=== PATIENT | male | born 1935 | race Caucasian/White ===

== ENCOUNTER 2024-10-29 10:34 | Inpatient (IN) | payer OTHER, MEDICARE ==
[~2024-10-29] VITALS: Ht 182.9 cm; Wt 88.0 kg
[2024-10-29 11:12] LABS: BASOPHILS # (AUTO) 0.1 X10'3 (0-0.2); BASOPHILS % (AUTO) 0.9 % (0-1); EOSINOPHILS # (AUTO) 0.2 X10'3 (0-0.9); EOSINOPHILS % (AUTO) 2.1 % (0-6); HEMATOCRIT 38.4 % (42.0-52.0); HEMOGLOBIN 13.2 g/dl (14.0-17.9); LYMPHOCYTES # (AUTO) 1.4 X10'3 (1.1-4.8); LYMPHOCYTES % (AUTO) 17.7 % (21-51); MEAN CORPUSCULAR HEMOGLOBIN 32.2 PG (27.0-31.0); MEAN CORPUSCULAR HGB CONC 34.3 g/dL (33.0-36.5); MEAN CORPUSCULAR VOLUME 93.8 FL (78-98); MEAN PLATELET VOLUME 7.1 FL (7.4-10.4); MONOCYTES # (AUTO) 0.7 X10'3 (0-0.9); MONOCYTES % (AUTO) 8.5 % (2-12); NEUTROPHILS # (AUTO) 5.6 X10'3 (1.8-7.7); NEUTROPHILS % (AUTO) 70.8 % (42-75); PLATELET COUNT 228 X10'3 (140-440); RED BLOOD COUNT 4.09 X10'6 (4.70-6.10); RED CELL DISTRIBUTION WIDTH 14.9 % (11.5-14.5); WHITE BLOOD COUNT 7.9 X10'3 (4.5-11.0)
--- NOTE | 2024-10-29 11:17 | RADIOLOGY REPORT ---
EXAM: XR Chest, 1 View CLINICAL INDICATION: CP TECHNIQUE: Frontal view of the chest. COMPARISON: None FINDINGS: LUNGS AND PLEURAL SPACES: Unremarkable. No consolidation. No pneumothorax. HEART: Unremarkable. No cardiomegaly. MEDIASTINUM: Unremarkable. Normal mediastinal contour. BONES/JOINTS: Unremarkable. No acute fracture. TUBES, LINES AND DEVICES: Left-sided cardiac pacemaker. OTHER FINDINGS: . . IMPRESSION: No acute cardiopulmonary process.
[2024-10-29 11:43] LABS: ALANINE AMINOTRANSFERASE 40 U/L (12-78); ALBUMIN 3.4 G/DL (3.4-5.0); ALBUMIN/GLOBULIN RATIO 1.3 (1.1-1.5); ALKALINE PHOSPHATASE 93 IU/L (46-116); ANION GAP 9 (8-16); ASPARTATE AMINO TRANSFERASE 28 U/L (10-37); BILIRUBIN,TOTAL 0.8 MG/DL (0.1-1.0); BLOOD UREA NITROGEN 29 MG/DL (7-18); BUN/CREATININE RATIO 22.7 (10.0-20.0); CALCIUM 8.9 MG/DL (8.5-10.1); CHLORIDE 108 MMOL/L (99-107); CREATININE 1.28 MG/DL (0.60-1.10); GLUCOSE 106 MG/DL (70-104); POTASSIUM 4.4 MMOL/L (3.5-5.1); SODIUM 144 MMOL/L (135-145); TOTAL PROTEIN 6.1 G/DL (6.4-8.2); eCRCL 43 ML/MIN; eGFR 53 ML/MIN
[2024-10-29 11:49] LABS: PRO BRAIN NATRIURETIC PEPTIDE 445 PG/ML (0-450)
--- NOTE | 2024-10-29 11:50 | RADIOLOGY REPORT ---
CLINICAL HISTORY: dizziness TECHNIQUE: Helical imaging carried out from skull base to vertex without intravenous contrast. This e xam was performed according to our departmental dose optimization program. Up-to-date CT equipment an d radiation dose reduction techniques are utilized as appropriate. CTDIVol: 34.05 mGy DLP: 641.18 mGy-cm WID: COMPARISON: None FINDINGS: Generalized cerebral volume loss with concordant prominence of the subarachnoid spaces and ventricles . Moderate patchy low attenuation in the cerebral white matter consistent with nonspecific white shahbaz er disease. 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 There is no midline shift or mass effect. The thorne white matter interfaces are maintained. The basal cisterns are patent. There is no evidence of acute intracranial hemorrhage or extra-axial fluid jose ection. The mastoid air cells and visualized paranasal sinuses are well-aerated. Prior ocular lens re placement. IMPRESSION: 1. No acute intracranial abnormality. 2. Generalized cerebral volume loss and moderate chronic microvascular ischemic Change. 3. 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
--- NOTE | 2024-10-29 12:27 | Physician Documentation ---
History of Present Illness ~ Chief Complaint: Dizziness Stated Complaint: DIZZY Time Seen by MD: 10:56 OK to notify your PCP?: Yes Source: patient Mode of Arrival: EMS Exam Limitations: no limitations HPI 89-year-old male with chief complaint three episodes of dizziness that occurred when he woke up this morning. He woke up feeling dizzy and the dizziness happened when he was supine in bed and then occurred again when he got out of bed on the way to the bathroom. One episode occurred when he was sitting down on the toilet and he had a fall but fell onto the toilet stating the toliet caught his fall. Did not hit head. No LOC. 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 HEENT: NCAT, EOMI, PERRLA, normal oropharynx, moist oral mucosa. NECK: Supple, trachea midline. CARDIAC: Regular rate and rhythm, no murmurs, rubs, or gallops. Equal distal pulses. No lower extremity edema, cap refill less than 2 seconds. RESPIRATORY: Equal breath sounds, clear to auscultation bilaterally, no respiratory distress. MUSCULOSKELETAL: Normal range of motion, nontender, no swelling. NEUROLOGICAL: Awake, alert, and oriented x 3. CN 2-12 INTACT. NORMAL [id number], MAJOR FLEXOR AND EXTENSOR MUSCLES OF UPPER AND LOWER EXTREMITIES STRENGTH 5/5 SKIN: Warm/dry, no pallor, no rash. PSYCH: Alert and appropriate. Affect congruent with mood. Speech is clear. Good eye contact. Progress Results/Orders Results/Orders Orders - MARY B[facility] Ct Head (10/29/24 11:15) * Orthostatic Vitals* Q12H (10/29/24 11:15) [place] Prov.Neuro Consult (10/29/24 12:13) General Nursing Order (10/29/24 12:13) Page Hospitalist (10/29/24 12:13) Completed Orders - MARY [facility] Ct Head (10/29/24 11:15) Medications Received in ER Medications (Trade) Dose Ordered Sig/Jesika Route PRN Reason Start Time Stop Time Status Last Admin Dose Admin Sodium Chloride 1,000 ml @ 80 mls/hr [id number] IV 10/29/24 12:30 10/29/24 16:00 80 MLS/HR Vital Signs 10/29/24 10/29/24 10/29/24 10/29/24 10:36 10:48 12:10 12:32 Temp 98.0 Pulse 64 60 63 Resp 16 16 18 B/P (MAP) 148/75 133/69 (90) 145/73 Pulse Ox 98 98 O2 Flow Rate 0 10/29/24 12:33 Pulse 62 60 63 B/P (MAP) 139/72 144/74 145/73 Laboratory Tests Test 10/29/24 11:05 White Blood Count 7.9 Red Blood Count 4.09 L Hemoglobin 13.2 L Hematocrit 38.4 L Mean Corpuscular Volume 93.8 Mean Corpuscular Hemoglobin 32.2 H Mean Corpuscular Hemoglobin Concent 34.3 Red Cell Distribution Width 14.9 H Platelet Count 228 Mean Platelet Volume 7.1 L Neutrophils (%) (Auto) 70.8 Lymphocytes (%) (Auto) 17.7 L Monocytes (%) (Auto) 8.5 Eosinophils (%) (Auto) 2.1 Basophils (%) (Auto) 0.9 Neutrophils # (Auto) 5.6 Lymphocytes # (Auto) 1.4 Monocytes # (Auto) 0.7 Eosinophils # (Auto) 0.2 Basophils # (Auto) 0.1 CBC Comment Sodium Level 144 Potassium Level 4.4 Chloride Level 108 H Carbon Dioxide Level 27.0 Anion Gap 9 Blood Urea Nitrogen 29 H Creatinine 1.28 H Estimated GFR/1.73 m2 53 BUN/Creatinine Ratio 22.7 H Glucose Level 106 H Osmolality 300 Calcium Level 8.9 Total Bilirubin 0.8 Aspartate Amino Transf (AST/SGOT) 28 Alanine Aminotransferase (ALT/SGPT) 40 Alkaline Phosphatase 93 Troponin I High Sensitivity 21 Pro-B-Type Natriuretic Peptide 445 Total Protein 6.1 L Albumin 3.4 Globulin 2.7 Albumin/Globulin Ratio 1.3 Chemistry Comments Ethyl Alcohol Level < 10 Medical Decision Making Differential Dx:Considerations: Include: anemia, CVA, dehydration, dysrhythmia, electrolyte imbalance, encephalopathy, Guillain-[place], hypoglycemia, hypotension, hypovolemia, labyrinthitis, Meniere's disease, myasathenia gravis, myocardial infarction, pulmonary embolus, renal failure, respiratory failure, TIA, VBI, vertigo central, vertigo peripheral, vestibular neuronitis, other Additional Information CONSIDERING AGE AND FINDINGS ON CT SCAN OF CHRONIC LACUNAR INFARCT AND UNCLEAR STROKE HISTORY SON REPORTS HISTORY OF "TIA" ONLY PATIENT NEEDS FURTHER WORKUP Departure Time of Disposition: 12:29 Admitted to Inpatient Unit: to hospitalist Impression: Primary Impression: Dizziness Additional Impressions: Cerebral infarction, chronic Pacemaker Coronary artery disease Qualified Codes: I25.10 - Atherosclerotic heart disease of [place] coronary artery without angina pectoris CHF (congestive heart failure) Qualified Codes: I50.9 - Heart failure, unspecified Condition: Fair Referrals: NO PRIMARY CARE PROVIDER (PCP) Education Educated: Patient Educated regarding: diagnosis, treatment, need for follow up Signature Scribe Signature: x Attestation: MARY Rizzo Oct 29, 2024 12:27
[2024-10-29] MEDS ORDERED: potassium Cl 20 mEq SR tablet PO PRN ×2 (12:30)
[2024-10-29] MEDS ORDERED: magnesium Cl slow-release 64mg tablet PO PRN (12:30)
[2024-10-29] MEDS ORDERED: mag hydrox/Alum hydrox/simeth 30ml oral suspension PO PRN (12:30)
[2024-10-29] MEDS ORDERED: magnesium hydroxide 30ml (MOM) UD suspension PO PRN (12:30)
[2024-10-29] MEDS ORDERED: magnesium sulf-water 4G/100mL 100 ML IV PRN (12:30)
[2024-10-29] MEDS ORDERED: acetaminophen 325mg tablet PO PRN (12:30)
[2024-10-29] MEDS ORDERED: potassium Cl 40MEQ/1/2NS 520ml 520 ML IV PRN (12:30)
[2024-10-29] MEDS ORDERED: ondansetron/PF 4mg/2ml inj IV PRN (12:30)
[2024-10-29] MEDS ORDERED: magnesium sulf-water 2g/50mL 50 ML IV PRN (12:30)
--- NOTE | 2024-10-29 14:14 | HISTORY AND PHYSICAL-Residence ---
History & Physical Providers to CC Resident Creating Document: CHAS WARNER, RES ~ History of Present Illness Primary Medical Doctor: [facility] Reason for Admit\Complaint: Dizziness History of Present Illness 89-year-old male patient with past medical history of prostate cancer s/p brachytherapy, AFib, ACS, came to the hospital with chief complaint of dizziness. The patient reports that as soon as he woke up this morning approximately at 6:00 a.m. he had an episode of dizziness, he felt that his head was turning. This 1st episode last for approximately 30 seconds, after that he was able to go to the restroom, while he was in the restroom he fell down landing sitting on the toilet, he says that he did not hit his head, upper or lower extremities. After this episode he needed the help of his son in order to stand up from his restroom and come back to his bed. The patient's son call to the ambulance, as per patient he never had these symptoms. He denied any loss of consciousness, chest pain, shortness of breath, palpitations, fever sensation, or loss of control of sphincters. When staff from the ambulance arrived they tried to help him to stand up, he had another episode of dizziness all of them lasted approximately 30 seconds. The patient mentioned that he does not use any help for walking at home but he does use a cane when he needs to walk for long distances, he endorses to be taken blood thinners. Allergies: Coded Allergies: Penicillins (Unverified Allergy, Severe, 10/29/24) Past Medical History Past Medical History Prostatic cancer s/p brachytherapy in the . 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 Atrial fibrillation. ACS 15 and 7 years ago S/P two stents. Past Surgical History Surgical History Comment S/P 2 cardiac stents the 1st 115 years ago, 2nd one 7 years ago. S/P pacemaker three years ago by Dr. Chilango sigala. Bilateral cataract surgery. Past Social History Smoking: Quit greater than 1 year (The patient quit smoking in 1968, he used to smoke three packs a day for at least 10 years.) Alcohol Use: Occasionally (The patient endorses moderate consumption of one Juanita per week.) Drug Use: None Lives with: Alone (The patient lives alone in his son's property who lives with the next door with his [id number], he endorses that his [id number]-cl-peb does cooking, laundry for him. As per patient's son is always taking care of him.) Lives In: Home Occupation: retired () ROS All Other Systems: Reviewed and Negative Exam Vitals: Vital Signs Date Time Temp Pulse Resp B/P (MAP) Pulse Ox O2 Delivery O2 Flow Rate FiO2 10/29/24 12:33 62 139/72 60 144/74 63 145/73 10/29/24 12:10 18 98 10/29/24 10:36 98.0 0 Physical exam: General: Well alert, well oriented, not confused, not agitated, not in acute distress, well cooperated during the physical. HEENT: Conjunctive are pink, sclerae clear, no icterus, pupil is equal in both sides, reactive to light, no ear discharge, no pharyngeal erythema or an edema. Neck: Supple, no JVD, no lymphadenopathy and thyromegaly. Chest: Equal air entry on both lungs, no additional sounds no rhonchi no wheezing at the moment. 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 Cardiovascular: S1-S2 regular sinus rhythm and, regular rate, no gallops, no rubs, no murmurs. Abdomen: No visible peristalsis, Bowel sounds present on auscultation, soft, nontender, no guarding, no rigidity Extremities: No obvious deformities, no pitting edema bilaterally, capillary refill intact, peripheral pulsations are intact on both sides Central Nervous System: No focal neurological deficits, no motor or sensory weakness in all 4 extremities, could move all 4 extremities, 2+ deep tendon reflexes, negative Babinski. Musculoskeletal: No joint swelling, deformities, inflammations, and no scoliosis and back tenderness Skin: Presence of actinic keratosis in right upper extremity at the level of the forearm. Diagnostic Data Last Recorded Lab Results: 10/29/24 1105 10/29/24 1105 Advance Care Planning Advanced Care plannin - 30 Minutes (I spent a total of 17 minutes on reviewing various resuscitative measures/ACP with the patient at the time of admission. The patient has decided on a full code status.) Additional Plan Assessment and plan: 89 years old male patient came to the hospital with chief complaint of dizziness. Syncope cardiac versus neurological: Orthostatic hypotension: The patient came to the hospital with chief complaint of three episodes of dizziness, lasting approximately 30 seconds. He denies loss of control of sphincters, he describes his dizziness as his head is turning and he stated he is unbalanced. Head CT scan: No acute intracranial abnormality. Generalized cerebral volume loss and moderate chronic microvascular ischemic Change. 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 Chest x-ray: No acute cardiopulmonary process. Neurology was consulted: Awaiting for recommendations. Follow-up echocardiogram. Follow-up MRI of the head. Follow-up MRA head and neck. Follow-up lipid panel. Follow-up hemoglobin A1c. Follow-up TSH. Follow-up orthostatic vitals. Neuro checks. NS at 80 mL/hour. Admit to PCU with telemetry. Acute kidney injury likely secondary to renal tubular stasis: Unknown baseline creatinine. Current creatinine 1.28, GFR 53, BUN/creatinine ratio 22.7. Follow-up urine lytes. NS at 80 mL/hour. Atrial fibrillation: History of ACS: S/P 2 coronary stents: The patient currently has a pacemaker, being followed by Dr. Soto, S/P 2 stents in 7 and 15 years ago. Electrocardiogram without ST elevation, AV dual paced rhythm, QRS 159 due to paced rhythm. Interval QT 495, mild prolongation. Troponin levels within reference range. Follow-up echocardiogram. We will continue Eliquis 5 mg b.i.d. Pending med reconciliation. Code status: Full code DVT prophylaxis: SCDs and Eliquis Analgesia/sedation: None Line/tube: PIV GI prophylaxis: Protonix Nutrition: Regular diet PT: Ordered Prognosis: Guarded Disposition: Admission to PCU with telemetry. Chas Wiseman Internal Medicine Resident [facility] Date of Service: Oct 29, 2024 Billing Provider: MADHAV STATON MD,CHAS CHANDLER, RES Oct 29, 2024 14:14
[2024-10-29 15:00] VITALS: BP 129/82; PULSE 63; RESP 16; TEMP 98; O2SAT 96
[2024-10-29 15:26] LABS: OSMOLALITY 300 MOSM/K (280-300)
[2024-10-29 15:27] LABS: BILIRUBIN,URINE NEGATIVE (Neg); CLARITY,URINE CLEAR (Clear); COLOR,URINE YELLOW (Yellow); GLUCOSE, URINE NEGATIVE (Neg); KETONES,URINE NEGATIVE (Neg); LEUKOCYTE ESTERASE ,URINE NEGATIVE (Neg); NITRITES, URINE NEGATIVE (Neg); OCCULT BLOOD,URINE NEGATIVE (Neg); PROTEIN,URINE NEGATIVE (Neg); UROBILINOGEN,URINE 0.2 E.U/dL (0.2-1.0)
[2024-10-29 15:33] LABS: ETHANOL < 10 MG/DL (<10)
[2024-10-29 15:34] LABS: OSMOLALITY UA 629 MOSM/K (50-1400)
[2024-10-29 15:43] LABS: UA COLLECTION TYPE NON-SPECIFIED
[2024-10-29 15:52] LABS: SODIUM,URINE RANDOM 125 MEQ/L; TOTAL PROTEIN,URINE RANDOM 17.8 MG/DL; URINE AMPHETAMINE SCREEN NEGATIVE (Neg); URINE BARBITUATE SCREEN NEGATIVE (Neg); URINE BENZODIAZEPINES SCREEN NEGATIVE (Neg); URINE CANNABINOID SCREEN NEGATIVE (Neg); URINE COCAINE SCREEN NEGATIVE (Neg); URINE METHADONE SCREEN NEGATIVE (Neg); URINE OPIATE SCREEN NEGATIVE (Neg); URINE PHENCYCLIDINE SCREEN NEGATIVE (Neg)
[2024-10-29 16:00] VITALS: RESP 16; O2SAT 96
[2024-10-29] MEDS: normal saline 1000ml 1,000 ML IV SCH (16:00)
[2024-10-29 16:21] LABS: UA EOSINOPHILS NO EOS /HPF
--- NOTE | 2024-10-29 17:45 | CONSULTATION REPORT ---
History of Present Illness Providers to CC ~ Reason for Admit\Admit Dx: Dizziness Refering MD: MICHAEL Phelan Allergies: Coded Allergies: Penicillins (Unverified Allergy, Severe, 10/29/24) Physical Exam Last Vital Signs Recorded: Temperature: 98.0, Source: Temporal, Heart Rate: 63, Respiratory Rate: 16, BP: 129/82, Pulse Oximetry: 96, Weight: 88.000 Results Diagram Lab Result Diagram: 10/29/24 1105 10/29/24 1105 Assessment/Plan [place] Neuro Note # Demographics Consult Type: General Neurology Patient Location: Inpatient First Name: Meliton Last Name: Mary VELEZ Date of : 1935 Age: 89 Gender: Male Facility: [facility] Time of Initial Page (): 10/29/2024 15:50 Time of Return Call (): 10/29/2024 15:51 # HPI History: 89M admitted for dizziness. Recurrent. Orthostatic BP normal reportedly. Woke with symptoms. # Scores Time of exam and NIHSS (): 10/29/2024 17:41 Level of Consciousness 1a: [0] = Alert; keenly responsive LOC Questions 1b: [0] = Answers both questions correctly LOC Commands 1c: [0] = Performs both tasks correctly Best Gaze 2: [0] = Normal Visual 3: [0] = No visual loss Facial Palsy 4: [0] = Normal symmetrical movements Motor Arm Left 5a: [0] = No drift Motor Arm Right 5b: [0] = No drift Motor Leg Left 6a: [0] = No drift Motor Leg Right 6b: [0] = No drift Limb Ataxia 7: [0] = Absent Sensory 8: [0] = Normal Best Language 9: [0] = No aphasia Dysarthria 10: [0] = Normal Extinction and Inattention 11: [0] = No abnormality NIHSS Total: 0 VAN Screening: Negative # PMH-FH-SH Past Medical History: - stroke # Data Head CT: - per radiologist read - no bleed Prior right caudate stroke. # Assessment Impression: - Vertigo Positional, started from sleep, most consistent with BPPV. # Plan Other: - If patient has any neurological deterioration please call me back immediately Additional Recommendations: Blayne maneuvers recommended. If not improving with blayne maneuvers, then consider MRI brain. Disposition: continue admission # Logistics Attestation of consult completion: The patient is located at: [facility]. Facility staff participated in the visit. I performed this telemedicine visit from my offsite office utilizing interactive 2 way audio and visual telecommunication technology. Consent: Verbal consent was obtained from the patient and/or family for this encounter. Total time spent in telemedicine encounter: I spent 20 minutes reviewing clinical data and/or imaging, obtaining history, examining the patient, communicating with the onsite care team, and in preparation of this report. # Demographics First Name: Meliton Last Name: Mary VELEZ Facility: [facility] CHANCE BERUMEN MD Oct 29, 2024 17:45
[2024-10-29 18:00] VITALS: BP 164/76; PULSE 60; RESP 19; TEMP 97.3; O2SAT 96
--- NOTE | 2024-10-29 18:04 | ELECTROCARDIOGRAPH REPORT ---
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 Dru Jama Measurements Intervals [place] Rate: 60 P: 0 RI: 61 QRS: -63 QRSD: 159 T: 107 QT: 495 QTc: 495 Interpretive Statements A-V dual-paced rhythm with some inhibition No further analysis attempted due to paced rhythm Electronically Signed On 10-31-2024 19:03:[address] Dru Jama Please click the below link to view image of tracing.
[2024-10-29 20:00] VITALS: BP_SYST 105; BP_SYST 131; BP_DIAS 57; BP_DIAS 72; PULSE 61; PULSE 62; RESP 15; O2SAT 97
[2024-10-29] MEDS: K and/or MAG REPLACEMENT MC SCH (20:00)
[2024-10-29] MEDS: docusate sod 100mg capsule PO SCH (20:00)
[2024-10-29 20:29] LABS: CHOL/HDL RATIO 1.9 (0.00-4.99); CHOLESTEROL 132 MG/DL (0-200); HDL CHOLESTEROL 70 MG/DL (35-60); HEMOGLOBIN A1C 6.1 % (4.5-6.2); LDL CHOLESTEROL 53 MG/DL (50-100); TRIGLYCERIDES 55 MG/DL (20-135)
[2024-10-29 22:00] VITALS: BP 113/61; PULSE 59; RESP 20; TEMP 97.4; O2SAT 96
[2024-10-30] VITALS (8 sets, daily range): BP systolic 110–140; BP diastolic 51–82; PULSE 60–81; RESP 15–22; TEMP 97.1–98.4; O2SAT 95–98
[2024-10-30] MEDS: Melatonin 3mg tablet PO ONE (01:36)
[2024-10-30] MEDS ORDERED: AMI200T PO (05:46)
[2024-10-30] MEDS ORDERED: CARV3.12 PO (05:50)
[2024-10-30] MEDS ORDERED: SACU1TAB7 PO (05:51)
[2024-10-30] MEDS ORDERED: SPIR25TA5 PO (05:52)
[2024-10-30] MEDS ORDERED: APIX2.5T PO (05:53)
[2024-10-30] MEDS ORDERED: ATOR20TA PO (05:54)
[2024-10-30 05:57] LABS: BASOPHILS % (AUTO) 0.3 % (0-1); EOSINOPHILS # (AUTO) 0.2 X10'3 (0-0.9); EOSINOPHILS % (AUTO) 1.9 % (0-6); HEMOGLOBIN 12.7 g/dl (14.0-17.9); LYMPHOCYTES # (AUTO) 1.6 X10'3 (1.1-4.8); LYMPHOCYTES % (AUTO) 18.6 % (21-51); MEAN CORPUSCULAR HEMOGLOBIN 31.8 PG (27.0-31.0); MEAN CORPUSCULAR HGB CONC 33.5 g/dL (33.0-36.5); MEAN PLATELET VOLUME 7.6 FL (7.4-10.4); MONOCYTES # (AUTO) 0.8 X10'3 (0-0.9); MONOCYTES % (AUTO) 9.1 % (2-12); NEUTROPHILS # (AUTO) 6.1 X10'3 (1.8-7.7); NEUTROPHILS % (AUTO) 70.1 % (42-75); PLATELET COUNT 226 X10'3 (140-440); RED CELL DISTRIBUTION WIDTH 14.7 % (11.5-14.5); WHITE BLOOD COUNT 8.7 X10'3 (4.5-11.0)
[2024-10-30 06:13] LABS: ALANINE AMINOTRANSFERASE 31 U/L (12-78); ALBUMIN/GLOBULIN RATIO 1.2 (1.1-1.5); ALKALINE PHOSPHATASE 77 IU/L (46-116); ANION GAP 7 (8-16); ASPARTATE AMINO TRANSFERASE 24 U/L (10-37); BILIRUBIN,TOTAL 0.7 MG/DL (0.1-1.0); BLOOD UREA NITROGEN 25 MG/DL (7-18); BUN/CREATININE RATIO 21.4 (10.0-20.0); CALCIUM 8.8 MG/DL (8.5-10.1); CHLORIDE 109 MMOL/L (99-107); CREATININE 1.17 MG/DL (0.60-1.10); GLUCOSE 95 MG/DL (70-104); POTASSIUM 3.9 MMOL/L (3.5-5.1); SODIUM 143 MMOL/L (135-145); TOTAL CARBON DIOXIDE 27.5 MMOL/L (24-32); TOTAL PROTEIN 5.5 G/DL (6.4-8.2); eCRCL 47 ML/MIN; eGFR 59 ML/MIN
[2024-10-30] MEDS: pantoprazole 40mg Tablet.DR PO SCH (08:41)
--- NOTE | 2024-10-30 19:07 | PROGRESS NOTE- Residence ---
Progress Note - Resident Providers to CC Resident Creating Document: KULWANT WARNER, RES ~ Antibiotic Timeout Antibiotic Ordered?: Yes Subjective The patient has been evaluated at the bedside. The patient reports mild improvement dizziness. Objective Vital Signs Date Time Temp Pulse Resp B/P (MAP) Pulse Ox O2 Delivery O2 Flow Rate FiO2 10/30/24 15:00 97.3 61 22 121/64 (83) 98 Room Air 10/30/24 06:00 0.0 Physical exam: General: Well alert, well oriented, not confused, not agitated, not in acute distress, well cooperated during the physical. HEENT: Conjunctive are pink, sclerae clear, no icterus, pupil is equal in both sides, reactive to light, no ear discharge, no pharyngeal erythema or an edema. Neck: Supple, no JVD, no lymphadenopathy and thyromegaly. Chest: Equal air entry on both lungs, no additional sounds no rhonchi no wheezing at the moment. 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 Cardiovascular: S1-S2 regular sinus rhythm and, regular rate, no gallops, no rubs, no murmurs. Abdomen: No visible peristalsis, Bowel sounds present on auscultation, soft, nontender, no guarding, no rigidity Extremities: No obvious deformities, no pitting edema bilaterally, capillary refill intact, peripheral pulsations are intact on both sides Central Nervous System: No focal neurological deficits, no motor or sensory weakness in all 4 extremities, could move all 4 extremities, 2+ deep tendon reflexes, negative Babinski. Musculoskeletal: No joint swelling, deformities, inflammations, and no scoliosis and back tenderness Skin: Presence of actinic keratosis in right upper extremity at the level of the forearm. Result Diagram: 10/30/24 0501 10/30/24 0501 Assessment Assessment 89 years old male patient came to the hospital with chief complaint of dizziness. Plan Plan Syncope cardiac versus neurological: Orthostatic hypotension: The patient came to the hospital with chief complaint of three episodes of dizziness, lasting approximately 30 seconds. He denies loss of control of sphincters, he describes his dizziness as his head is turning and he stated he is unbalanced. Head CT scan: No acute intracranial abnormality. Generalized cerebral volume loss and moderate chronic microvascular ischemic Change. 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 Chest x-ray: No acute cardiopulmonary process. Neurology was consulted: Awaiting for recommendations. Echocardiogram: LVEF 30-35%. RVSP 38 mmHg. Dilated left ventricle size and normal wall thickness. Multisegmental wall motion abnormalities noted. Dr. Sheets was consulted. Awaiting recommendations. Follow-up MRI of the head. We will be performed tomorrow after evaluation of pacemaker for compatibility with MRI. Lipid panel within reference range. Follow-up MRA head and neck. Follow-up TSH. Negative orthostatic vitals. Neuro checks. NS at 80 mL/hour. 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 Overall systolic function is severelyreduced. Multisegmental wall motion abnormalities noted. there is severe LV systolic dysfunction present. Overall estimatedLVEF is about 30-35%. RV is moderately dilated with normal systolic function. RVSP is estimated at 38 mmHg. Pacemaker wire in right heart. Jardiance 10 mg daily. Carvedilol 3.125 mg b.i.d. Entresto b.i.d Spirinolactone 12.5 mg daily. 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 Current creatinine 1.28, GFR 53, BUN/creatinine ratio 22.7. Urine lytes: FeNa 1.4% FeUrea: 52% indicative of intrinsic damage. Urine/plasma osmolality: 2.09 indicative of prerenal cause. NS at 80 mL/hour. Hyperglycemia: Prediabetes: Hemoglobin A1c 6.1. Continue monitoring CMP. Jardiance 10 mg daily. Atrial fibrillation: History of ACS: S/P 2 coronary stents: The patient currently has a pacemaker, being followed by Dr. Soto, S/P 2 stents in 7 and 15 years ago. Electrocardiogram without ST elevation, AV dual paced rhythm, QRS 159 due to paced rhythm. Interval QT 495, mild prolongation. Troponin levels within reference range. Echocardiogram: Impression: Eliquis 5 mg b.i.d. Code status: Full code DVT prophylaxis: SCDs and Eliquis Analgesia/sedation: None Line/tube: PIV GI prophylaxis: Protonix Nutrition: Regular diet PT: Ordered Prognosis: Guarded Disposition: Continue medical treatment. Kulwant Wiseman Internal Medicine Resident [facility] Date of Service: Oct 30, 2024 Billing Provider: BRIONNA,MADHAV KULWANT ARGUETA, RES Oct 30, 2024 19:07
[2024-10-31] VITALS (10 sets, daily range): BP systolic 104–136; BP diastolic 46–90; PULSE 54–64; RESP 14–24; TEMP 97.3–98.7; O2SAT 95–97
[2024-10-31 06:10] LABS: BASOPHILS # (AUTO) 0.1 X10'3 (0-0.2); EOSINOPHILS # (AUTO) 0.2 X10'3 (0-0.9); EOSINOPHILS % (AUTO) 2.3 % (0-6); HEMATOCRIT 39.1 % (42.0-52.0); HEMOGLOBIN 13.2 g/dl (14.0-17.9); LYMPHOCYTES # (AUTO) 1.3 X10'3 (1.1-4.8); MEAN CORPUSCULAR HEMOGLOBIN 31.8 PG (27.0-31.0); MEAN CORPUSCULAR HGB CONC 33.8 g/dL (33.0-36.5); MEAN CORPUSCULAR VOLUME 94.3 FL (78-98); MEAN PLATELET VOLUME 7.5 FL (7.4-10.4); MONOCYTES # (AUTO) 0.7 X10'3 (0-0.9); MONOCYTES % (AUTO) 7.6 % (2-12); NEUTROPHILS # (AUTO) 6.8 X10'3 (1.8-7.7); NEUTROPHILS % (AUTO) 75.1 % (42-75); PLATELET COUNT 226 X10'3 (140-440); RED BLOOD COUNT 4.14 X10'6 (4.70-6.10); RED CELL DISTRIBUTION WIDTH 14.4 % (11.5-14.5)
[2024-10-31 06:40] LABS: ALANINE AMINOTRANSFERASE 29 U/L (12-78); ALBUMIN/GLOBULIN RATIO 1.2 (1.1-1.5); ALKALINE PHOSPHATASE 77 IU/L (46-116); ANION GAP 8 (8-16); ASPARTATE AMINO TRANSFERASE 21 U/L (10-37); BILIRUBIN,TOTAL 0.6 MG/DL (0.1-1.0); BLOOD UREA NITROGEN 22 MG/DL (7-18); BUN/CREATININE RATIO 20.4 (10.0-20.0); CALCIUM 8.8 MG/DL (8.5-10.1); CHLORIDE 110 MMOL/L (99-107); CREATININE 1.08 MG/DL (0.60-1.10); GLUCOSE 101 MG/DL (70-104); SODIUM 144 MMOL/L (135-145); THYROID STIMULATING HORMONE 2.23 ulU/ml (0.34-4.50); TOTAL CARBON DIOXIDE 25.8 MMOL/L (24-32); TOTAL PROTEIN 5.6 G/DL (6.4-8.2); eCRCL 51 ML/MIN; eGFR 64 ML/MIN
--- NOTE | 2024-10-31 06:56 | CONSULTATION ---
DATE OF CONSULTATION: 10/30/2024 DICTATING PHYSICIAN: RIVERA Soto MD CARDIOLOGY CONSULTATION PRIMARY PHYSICIAN: [facility]. REFERRING PHYSICIAN: Dr. Kulwant Wiseman. RIBBON INKER: RIVERA Soto MD IDENTIFICATION: An 89-year-old male with episodes of dizziness. HISTORY OF PRESENT ILLNESS: The patient is an 89-year-old male with history of hypertension, hyperlipidemia, cardiomyopathy, systolic heart failure, CAD, status post coronary artery stenting, status post PPM. He is here for episodes of dizziness. History of CAD goes back to 01/1996 when he had an acute myocardial infarction despite thrombolytic therapy, angioplasty of the proximal LAD. Ramus had diffuse disease. Back in 01/2009, EF 55%. The patient had PTCA stenting of the distal LAD with 2.5 mm Taxus drug-coated stent, post-dilated 2.[address] Leach in [facility]. In 02/01/2014, during angiography, he was found to have a 70% in-stent restenosis of the LAD with successful angioplasty and stenting with 2.5 mm Resolute stent, post-dilated 2.75 mm. At that time, posterolateral branch has 50% narrowing. On 03/01/2014, the posterolateral branch was stented with 3/15 mm Alexander stent, post-dilated 3.5 mm. Mid RCA was stented 3/12 Resolute [place] stent, post-dilated to 4 mm and last myocardial perfusion scan was back in 05/18/2024, still negative for ischemia. His ejection fraction back in 02/25 was 60% and the patient has sick sinus syndrome, requiring a pacemaker implantation on 02/27/2022 and his last pacemaker checkup was on 12/29/2023 and with appropriate pacing and sensing thresholds under the AV paced 98% of the time, there were no AFib episodes. However, the patient does have history of atrial fibrillation since 2020 when he was in 01/2021, he was hospitalized with recurrent AFib with RVR. Subsequently, rate controlled and anticoagulation, started amiodarone, converted to normal sinus rhythm and the patient was admitted at [facility] on 02/26 with COVID infection, acute hypoxic respiratory failure. Ejection fraction on 02/09/2024 was 35-40%. At that time, he was started on Entresto, spironolactone and Jardiance and subsequently, transferred to a rehab and discharged home on 03/29. The patient has a history of carotid disease with CEA in 2014, right CEA. The patient had syncope episode prior to pacemaker implantation. So, the patient generally ambulates around the house and reports dyspnea while going uphill, in which dyspnea class 2-3. The patient primarily came to the emergency room because of sudden onset dizziness with the vertiginous feeling and he had 2 episodes, lasting approximately 30 seconds. No history of syncope. When he was sitting on his toilet bowl, he had a fall at that time. At that time, he did not have any loss of consciousness. PAST MEDICAL HISTORY: * Hypertension. * Hyperlipidemia. * CAD, status post stenting. * Cardiomyopathy. * Sick sinus syndrome status post PPM. * Prediabetes. * Carotid artery disease. * History of CVA back in . * CKD. * Hearing loss. * BPH. * History of prostate cancer, status post brachytherapy. PAST SURGICAL HISTORY: Pilonidal cyst removal in 1953, right carotid surgery in 2014, and cardiac stenting. SOCIAL HISTORY: The patient's in 06/26, lives in a large trailer on some property in [place]. [id number] does cooking and laundry. He retired in 1987 from working for [employer]. Remote history of tobacco use from to . Occasional alcohol use. Uses cane since 12/2023. REVIEW OF SYSTEMS: HEENT: Reading glasses, mild hearing impairment. RESPIRATORY: Exertional shortness of breath. MUSCULOSKELETAL: Arthralgias. CENTRAL NERVOUS SYSTEM: History of CVA in 1989. OUTPATIENT MEDICATIONS: Eliquis 5 mg p.o. daily, carvedilol 3.25 mg p.o., amiodarone 100 mg p.o. daily, Entresto 49/51 p.o. b.i.d., spironolactone 25 half tablet p.o. daily, Crestor 40 mg p.o. daily. PHYSICAL EXAMINATION: GENERAL: The patient is conscious, alert, oriented, comfortable at rest. HEENT: Pupils equal and reactive. Oral mucosa moist. Head atraumatic. VITAL SIGNS: Temperature 98, pulse 64, blood pressure 140/78, 98% pulse oximetry on room air. NECK: No JVD. Carotids equally well felt. CARDIAC: Regular in rate and rhythm. S1, S2 normal. No S3, S4. LABORATORY DATA: WBC 7.9, hemoglobin 13.2, hematocrit 38.4, platelets 228. Sodium 144, potassium 4.4, chloride 108, carbon dioxide 27, BUN 28, creatinine 1.28 on 10/29/2024. DIAGNOSTIC DATA: Echocardiogram from 10/30/2024 revealed ejection fraction of 30-35% with mild MR and moderate TR with PA systolic pressure of 38 mmHg. IMPRESSION AND PLAN: * An 89-year-old male with acute onset of dizziness with instability? The patient had a Neurology consult. The CT scan did not show no acute bleed and prior right caudal stroke. They wanted to do an MR.. It is an Nuggeta MRI device, so it is compatible with pacemaker. The patient can undergo required MRI. * History of CAD, prior history of coronary artery stenting. I recommend continued statins and aspirin. * Dilated cardiomyopathy with ejection fraction of 30-35%. Continue Entresto, spironolactone, and carvedilol. * History of chronic systolic heart failure, diuretics as required. * History of status post PPM/PAF. Pacemaker is working appropriately and history of PAF. Continue Eliquis, amiodarone, carvedilol. * Hypertension, hyperlipidemia. Counseled on coronary risk factor modification. * Other comorbidities include mild dementia, hearing loss, wears hearing aids, history of CVA in 1989, benign prostatic hypertrophy, CKD. RIVERA Soto MD TID: [id number] RECEIPT: [id number] JOSSY/OSCAR/TRACY MTDD
[2024-10-31] MEDS ORDERED: spironolactone 25 MG tablet PO SCH (08:00)
[2024-10-31] MEDS ORDERED: carVEDilol 3.125mg tablet PO SCH (08:00)
[2024-10-31] MEDS ORDERED: meclizine 12.5mg tablet PO PRN (08:25)
[2024-10-31] MEDS: amiodarone 100mg tablet PO SCH (09:00)
[2024-10-31] MEDS: spironolactone 25 MG tablet PO SCH (09:11)
[2024-10-31] MEDS: carVEDilol 3.125mg tablet PO SCH (09:12)
[2024-10-31] MEDS: sacubitril/valsartan 49mg-51mg tablet PO SCH (09:13)
[2024-10-31] MEDS: EMPAGLIFLOZIN 10 MG TABLET PO SCH (09:14)
[2024-10-31] MEDS: atorvastatin 20mg tablet PO SCH (09:15)
--- NOTE | 2024-10-31 13:02 | PROGRESS NOTE ---
Progress Note Cardiology Providers to CC ~ Subjective Subjective Patient seen and examined this afternoon after MRI. Has not had any recurrence of dizzy episodes. MRI results pending Objective Result Diagram: 10/31/24 0539 10/31/24 0539 Objective General: Normal body habitus, no acute distress, HEENT: Sclerae clear, PERRL, gums without lesions or bleeding, oropharynx clear without erythema or exudate. Neck: Supple without enlargement of the thyroid, or lymphadenopathy, Chest: Normal size and shape, no tenderness, nonlabored breathing, Breath sounds clear to auscultation. Heart: Regular in rate and rhythm, S1 and S2 normal, no S3-S4 or murmurs. Abdomen: Soft, nontender, no organomegaly, bowel sounds present. Extremities: No edema cyanosis or clubbing. Problem\Assessment\Plan Additional Plan 1. * An 89-year-old male with acute onset of dizziness with instability? The patient had a Neurology consult. The CT scan did not show no acute bleed and prior right caudal stroke. Patient had MRI on . Management per hospitalist. 2. * History of CAD, prior history of coronary artery stenting. I recommend continued statins and aspirin. 3. * Dilated cardiomyopathy with ejection fraction of 30-35%. Continue Entresto, spironolactone, and carvedilol. Recommend adding Farxiga 10 mg p.o. q.day 4. * History of chronic systolic heart failure, diuretics as required. 5. * History of status post PPM/PAF. Pacemaker is working appropriately and history of PAF. Continue Eliquis, amiodarone, carvedilol. Patient is in AV paced rhythm. 6. * Hypertension, hyperlipidemia. Counseled on coronary risk factor modification. 7. * Other comorbidities include mild dementia, hearing loss, wears hearing aids, history of CVA in 1989, benign prostatic hypertrophy, CKD. AKBAR RUTLEDGE MD Oct 31, 2024 13:02
--- NOTE | 2024-10-31 13:28 | RADIOLOGY REPORT ---
CLINICAL INDICATION: 89 years old, Male; stroke. COMPARISON: CT CT HEAD on DOS: 10/29/24 TECHNIQUE: Multisequence multiplanar MRI images of the brain were obtained without contrast. 3-D armida e-of-flight MRA images were performed through the intracranial circulation without contrast. Additio nal 3-D reformatted images were obtained, stored, and reviewed. FINDINGS: MRI BRAIN: No acute infarct or hemorrhage. No mass or midline shift. Scattered moderate areas of T2/F LAIR hyperintense signal in the periventricular and subcortical white matter are nonspecific, but mos t likely sequelae of chronic small vessel ischemic disease. No abnormal parenchymal or meningeal enha ncement. Ventricles and sulci are within normal limits. Basal cisterns are patent. Cerebellum, brain stem, and midline structures are within normal limits. Mild mucosal thickening of the paranasal sinus es. Bilateral lens prostheses incidentally noted. Orbits are otherwise grossly unremarkable. MRA BRAIN: The intracranial segments of the internal carotid arteries are normal in course and calibe r. The middle and anterior cerebral arteries are unremarkable. The distal vertebral arteries, basila r artery, and posterior cerebral arteries are normal in course and caliber. There is no evidence of l arge vessel occlusion, significant stenosis, vascular malformation, or aneurysm. IMPRESSION: 1. No acute intracranial abnormality. 2. Nonacute findings as described above. 3. MRA exam demonstrates no evidence of large vessel occlusion, aneurysm, or vascular malformation.
--- NOTE | 2024-10-31 14:10 | CARDIOLOGY REPORT ---
APPROVED REPORT EXAM: Comprehensive 2D, Doppler, and color-flow Echocardiogram. Patient Location: 3027 B Blood Pressure: 125/58 mmHg Heart Rate: 60 bpm Rhythm: AV PACED Indications SYNCOPE ATRIAL FIBRILLATION CAROTID STENTS X2 Beam Press Operator: Jermaine Soto MD Previous echo: none available (after hours) 2D Dimensions RVDd 3.7 cm IVSd 0.9 (0.7-1.1cm) LVDd 5.7 cm PWd 1.0 (0.7-1.1cm) IVSs 1.2 (0.8-1.2cm) LVDs 4.8 (2.5-4.0cm) PWs 1.4 (0.8-1.2cm) LVOT Diameter 1.99 (1.8-2.4cm) LVEF(%) 38.2 (>50%) Ao Asc Diam.3.61 cm FS (%) 18.8 % SV 59.8 ml CO 3.6 L/min M-Mode Dimensions Left Atrium(MM) 3.73 (2.5-4.0cm) Aortic Root 3.38 (2.2-3.7cm) Aortic Cusp Exc 1.48 (1.5-2.0cm) Aortic Valve AoV Peak Pedro. 143.5 cm/s AoV VTI 29.8 cm AO Peak GR. 8.2 mmHg AO Mean GR. 5 mmHg LVOT VTI 24.91 cm LVOT Peak Pedro. 104.3 cm/s RAFAEL(VTI)/BSA 2.60 cm2/m2 RAFAEL (VTI) 2.60 cm2 Mitral Valve MV E Velocity 57.1 cm/s MV Peak Gr. 1 mmHg MV DECEL TIME 364 ms MV A Velocity 61.8 cm/s MV Mean Gr. 1 mmHg MV PHT 116 ms E/A Ratio 0.9 MV VMax58.9 cm/s MV VMean46.1 cm/sMVA VTI3.69 cm2 MV VTI21.0 cm TDI Medial E' P. V 5.02 cm/s E/Medial E' 11.4 Tricuspid Valve TR P. Velocity 267 cm/s RAP ESTIMATE 10 mmHg TR Peak Gr. 28 mmHg RVSP 38 mmHg Pulmonary Vein S1 Velocity 41.9 cm/s D2 Velocity 33.7 cm/s PVa Voopoypa22.2 cm/s PVa [id number] msec LEFT VENTRICLE Dilated LV size and normal wall thickness. Overall systolic function is severelyreduced. Multisegment al wall motion abnormalities noted. there is severe LV systolic dysfunction present. Overall estimat edLVEF is about 30-35%. RIGHT VENTRICLE RV is moderately dilated with normal systolic function. RVSP is estimated at 38 mmHg. Pacemaker wire in right heart. ATRIA LA size is normal. AORTIC VALVE Trileaflet AV appears mildly sclerotic without stenosis or insufficiency. MITRAL VALVE Mild MV annular calcification without significant stenosis. Mild regurgitation. TRICUSPID VALVE TV appears structurally normal with moderate regurgitation. PULMONIC VALVE Normal PV without stenosis, physiologic insufficiency. GREAT VESSELS Aortic root is normal in size. Ascending aorta is normal in size. PERICARDIUM Normal pericardium. No effusion. Other Information Study Quality: Adequate Conclusion there is severe LV systolic dysfunction present. Overall estimatedLVEF is about 30-35%. Dilated LV size and normal wall thickness. Overall systolic function is severelyreduced. Multisegmen meek wall motion abnormalities noted. RV is moderately dilated with normal systolic function. RVSP is estimated at 38 mmHg. Pacemaker wire in right heart. Trileaflet AV appears mildly sclerotic without stenosis or insufficiency. Mild MV annular calcification without significant stenosis. Mild regurgitation. TV appears structurally normal with moderate regurgitation. Normal PV without stenosis, physiologic insufficiency. Normal pericardium. No effusion.
--- NOTE | 2024-10-31 18:58 | PROGRESS NOTE- Residence ---
Progress Note - Resident Providers to CC Resident Creating Document: JAIDA BRYONCHAS Mtz, RES ~ Antibiotic Timeout Antibiotic Ordered?: No Subjective The patient has been evaluated at the bedside. The patient reports improvement of dizziness. Objective Vital Signs Date Time Temp Pulse Resp B/P (MAP) Pulse Ox O2 Delivery O2 Flow Rate FiO2 10/31/24 14:30 97.3 60 24 123/61 (81) 97 Room Air 10/30/24 06:00 0.0 Physical exam: General: Well alert, well oriented, not confused, not agitated, not in acute distress, well cooperated during the physical. HEENT: Conjunctive are pink, sclerae clear, no icterus, pupil is equal in both sides, reactive to light, no ear discharge, no pharyngeal erythema or an edema. Neck: Supple, no JVD, no lymphadenopathy and thyromegaly. Chest: Equal air entry on both lungs, no additional sounds no rhonchi no wheezing at the moment. 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 Cardiovascular: S1-S2 regular sinus rhythm and, regular rate, no gallops, no rubs, no murmurs. Abdomen: No visible peristalsis, Bowel sounds present on auscultation, soft, nontender, no guarding, no rigidity Extremities: No obvious deformities, no pitting edema bilaterally, capillary refill intact, peripheral pulsations are intact on both sides Central Nervous System: No focal neurological deficits, no motor or sensory weakness in all 4 extremities, could move all 4 extremities, 2+ deep tendon reflexes, negative Babinski. Musculoskeletal: No joint swelling, deformities, inflammations, and no scoliosis and back tenderness Skin: Presence of actinic keratosis in right upper extremity at the level of the forearm. Result Diagram: 10/31/24 0539 10/31/24 0539 Assessment Assessment 89 years old male patient came to the hospital with chief complaint of dizziness. Plan Plan Syncope: Possible benign positional paroxysmal vertigo: Orthostatic hypotension-ruled out: CVA-ruled out: The patient came to the hospital with chief complaint of three episodes of dizziness, lasting approximately 30 seconds. He denies loss of control of sphincters, he describes his dizziness as his head is turning and he stated he is unbalanced. Head CT scan: No acute intracranial abnormality. Generalized cerebral volume loss and moderate chronic microvascular ischemic Change. 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 Chest x-ray: No acute cardiopulmonary process. Neurology was consulted: Awaiting for recommendations. Echocardiogram: LVEF 30-35%. RVSP 38 mmHg. Dilated left ventricle size and normal wall thickness. Multisegmental wall motion abnormalities noted. Lipid panel within reference range. MRI of the head: No acute intracranial abnormality. Nonacute findings as described above. MRA exam demonstrates no evidence of large vessel occlusion, aneurysm, or vascular malformation. MRA of head and neck: No acute intracranial abnormality. Nonacute findings as described above. MRA exam demonstrates no evidence of large vessel occlusion, aneurysm, or vascular malformation. Dr. Sheets was involved in the case. Recommends continue GDMT to be completed. TSH within reference range. Negative orthostatic vitals. Neuro checks. NS at 80 mL/hour. Meclizine 25 mg t.i.d. p.r.n. 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 Overall systolic function is severelyreduced. Multisegmental wall motion abnormalities noted. there is severe LV systolic dysfunction present. Overall estimatedLVEF is about 30-35%. RV is moderately dilated with normal systolic function. RVSP is estimated at 38 mmHg. Pacemaker wire in right heart. Jardiance 10 mg daily. Carvedilol 3.125 mg b.i.d. Entresto b.i.d Spirinolactone 12.5 mg daily. Acute kidney injury secondary to renal tubular necrosis-resolved: Unknown baseline creatinine. Current creatinine levels within reference range. Urine lytes: FeNa 1.4% FeUrea: 52% indicative of intrinsic damage. Urine/plasma osmolality: 2.09 indicative of prerenal cause. NS at 80 mL/hour. Hyperglycemia: Prediabetes: Hemoglobin A1c 6.1. Continue monitoring CMP. Jardiance 10 mg daily. Atrial fibrillation: History of ACS: S/P 2 coronary stents: The patient currently has a pacemaker, being followed by Dr. Soto, S/P 2 stents in 7 and 15 years ago. Electrocardiogram without ST elevation, AV dual paced rhythm, QRS 159 due to paced rhythm. Interval QT 495, mild prolongation. Troponin levels within reference range. Eliquis 5 mg b.i.d. Carvedilol 3.125 mg b.i.d. Code status: Full code DVT prophylaxis: SCDs and Eliquis Analgesia/sedation: None Line/tube: PIV GI prophylaxis: Protonix Nutrition: Regular diet PT: Ordered Prognosis: Guarded Disposition: Continue medical treatment. Anticipated discharge tomorrow [facility]. Chas Wiseman Internal Medicine Resident [facility] Date of Service: Oct 31, 2024 Billing Provider: MADHAV STATON MD, FRANCO LUIS, RES Oct 31, 2024 18:58
[2024-11-01 02:00] VITALS: BP 119/68; PULSE 61; RESP 16; TEMP 97.5; O2SAT 99
[2024-11-01 06:00] VITALS: BP 116/68; PULSE 64; RESP 16; TEMP 97.8; O2SAT 97
[2024-11-01 08:15] VITALS: RESP 16; O2SAT 97
[2024-11-01] MEDS: spironolactone 25 MG tablet PO SCH (08:20)
[2024-11-01 10:30] VITALS: BP 140/63; PULSE 61; RESP 17; TEMP 97.3; O2SAT 97
[2024-11-01 14:40] VITALS: BP 143/71; PULSE 55; RESP 16; TEMP 96.7; O2SAT 97
--- NOTE | 2024-11-01 14:56 | PROGRESS NOTE ---
Progress Note Cardiology Providers to CC ~ Subjective Subjective Patient seen and examined before his discharge. Patient still has minor episodes of dizziness for example he had one episode while on toilet bowl. His pulse and blood pressure are okay. Objective Result Diagram: 10/31/2439 10/31/2439 Objective General: Normal body habitus, no acute distress, HEENT: Sclerae clear, PERRL, gums without lesions or bleeding, oropharynx clear without erythema or exudate. Neck: Supple without enlargement of the thyroid, or lymphadenopathy, Chest: Normal size and shape, no tenderness, nonlabored breathing, Breath sounds clear to auscultation. Heart: Regular in rate and rhythm, S1 and S2 normal, no S3-S4 or murmurs. Abdomen: Soft, nontender, no organomegaly, bowel sounds present. Extremities: No edema cyanosis or clubbing. Problem\Assessment\Plan Additional Plan 1. * An 89-year-old male with acute onset of dizziness with instability? The patient had a Neurology consult. The CT scan did not show no acute bleed and prior right caudal stroke. MRI did not show any acute CVA. Did show some chronic age-related changes. 2. * History of CAD, prior history of coronary artery stenting. I recommend continued statins and aspirin. 3. * Dilated cardiomyopathy with ejection fraction of 30-35%. Continue Entresto, spironolactone, and carvedilol. Recommend adding Farxiga 10 mg p.o. q.day 4. * History of chronic systolic heart failure, diuretics as required. 5. * History of status post PPM/PAF. Pacemaker is working appropriately and history of PAF. Continue Eliquis, amiodarone, carvedilol. Patient is in AV paced rhythm. 6. * Hypertension, hyperlipidemia. Counseled on coronary risk factor modification. 7. * Other comorbidities include mild dementia, hearing loss, wears hearing aids, history of CVA in 1989, benign prostatic hypertrophy, CKD. It was recommended to follow up with me in three months with echocardiogram. At that time if his EF is still low possible option of upgrading his pacemaker to AICD was discussed with patient. He wants to think about it AKBAR RUTLEDGE MD Nov 01, 2024 14:56
[2024-11-01] MEDS ORDERED: ondansetron 4mg rapidly disintigrating tab PO PRN (15:50)
--- NOTE | 2024-11-01 19:53 | DISCHARGE SUMMARY-Residence ---
Discharge Summary Providers to Resident Creating Document: JAIDA SIEGELCHAS RAMESH, RES ~ Discharge Summary Admission Diagnosis: Dizziness Hospital Course DATE OF ADMISSION: 10/29/2024 DATE OF DISCHARGE: 11/01/2024 Laboratory: WBC 9.0, RBC 4.14, hemoglobin 13.2, hematocrit 29.1, MCV 94.3, platelet count 226, sodium 144, potassium 4.0, chloride 110, carbon dioxide 25.8, creatinine 1.08, GFR 64. Imaging: Head MRI: No acute intracranial abnormality. Nonacute findings as described above. MRA exam demonstrates no evidence of large vessel occlusion, aneurysm, or vascular malformation. Head MRA: No acute intracranial abnormality. Nonacute findings as described above. MRA exam demonstrates no evidence of large vessel occlusion, aneurysm, or vascular malformation. Echocardiogram: There is severe LV systolic dysfunction present. Overall estimatedLVEF is about 30-35%. Multisegmental wall motion abnormalities noted. Head CT: No acute intracranial abnormality. Generalized cerebral volume loss and moderate chronic microvascular ischemic Change. 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 Chest x-ray: No acute cardiopulmonary process. Discharge Diagnosis\Comment: Syncope Possible benign positional paroxysmal vertigo Orthostatic hypotension-ruled out CVA-ruled out Chronic systolic congestive heart failure with reduced ejection fraction of 35% Stage C/NYHA class III Acute kidney injury secondary to renal tubular necrosis-resolved Hyperglycemia Prediabetes Atrial fibrillation History of ACS S/P 2 coronary stents Operations\Procedures: None Consultants: Cardiology, Neurology Complications: None Condition on DC: Stable Discharge Summary: HPI: 89-year-old male patient with past medical history of prostate cancer s/p brachytherapy, AFib, ACS, came to the hospital with chief complaint of dizziness. The patient reports that as soon as he woke up this morning approximately at 6:00 a.m. he had an episode of dizziness, he felt that his head was turning. This 1st episode last for approximately 30 seconds, after that he was able to go to the restroom, while he was in the restroom he fell down landing sitting on the toilet, he says that he did not hit his head, upper or lower extremities. After this episode he needed the help of his son in order to stand up from his restroom and come back to his bed. The patient's son call to the ambulance, as per patient he never had these symptoms. He denied any loss of consciousness, chest pain, shortness of breath, palpitations, fever sensation, or loss of control of sphincters. When staff from the ambulance arrived they tried to help him to stand up, he had another episode of dizziness all of them lasted approximately 30 seconds. The patient mentioned that he does not use any help for walking at home but he does use a cane when he needs to walk for long distances, he endorses to be taken blood thinners. Hospital course: 89-year-old male patient came to the hospital with chief complaint of syncope. The patient was admitted due to possible neurological versus cardiology syncope. CVA was ruled out, orthostatic vitals were obtained, negative for orthostatic hypotension. Cardiology was consulted Dr. Soto who is following the patient as an outpatient. Recommended continue medication with GDMT for his heart failure. Benign positional paroxysmal vertigo, Gary maneuver was performed, significant improved after maneuver for his symptoms of dizziness. Physical therapy evaluated the patient who recommended post-acute care. The patient remained hemodynamically stable. The patient will be discharged to [facility]. Discharge course: The patient remained hemodynamically stable. The patient will be discharged to [facility] rehab with the following instructions: Follow-up with the primary care physician within 15 days. Take meclizine 25 mg every 8 hours as needed for dizziness. Continue aspirin spironolactone 12.5 mg daily, amiodarone 100 mg daily, carvedilol 3.125 mg b.i.d., Entresto b.i.d., Jardiance 10 mg daily and pantoprazole 40 mg daily. Follow-up with customer training specialist, Dr. Soto within one month. Slow movement when changing of position, mostly from lying down to standing up. Vital Signs Date Time Temp Pulse Resp B/P (MAP) Pulse Ox O2 Delivery O2 Flow Rate FiO2 11/01/24 14:40 96.7 55 16 143/71 (95) 97 Room Air 10/30/24 06:00 0.0 Physical exam: General: Well alert, well oriented, not confused, not agitated, not in acute distress, well cooperated during the physical. HEENT: Conjunctive are pink, sclerae clear, no icterus, pupil is equal in both sides, reactive to light, no ear discharge, no pharyngeal erythema or an edema. Neck: Supple, no JVD, no lymphadenopathy and thyromegaly. Chest: Equal air entry on both lungs, no additional sounds no rhonchi no wheezin g at the moment. 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 Cardiovascular: S1-S2 regular sinus rhythm and, regular rate, no gallops, no rubs, no murmurs. Abdomen: No visible peristalsis, Bowel sounds present on auscultation, soft, nontender, no guarding, no rigidity Extremities: No obvious deformities, no pitting edema bilaterally, capillary refill intact, peripheral pulsations are intact on both sides Central Nervous System: No focal neurological deficits, no motor or sensory weakness in all 4 extremities, could move all 4 extremities, 2+ deep tendon reflexes, negative Babinski. Musculoskeletal: No joint swelling, deformities, inflammations, and no scoliosis and back tenderness Skin: Presence of actinic keratosis in right upper extremity at the level of the forearm. *Problems/Diagnosis: (1) Benign paroxysmal positional vertigo Status: Acute (2) CHF (congestive heart failure) Status: Chronic (3) Acute kidney injury Status: Resolved Total Time Spent on D/C: Up to 30 Minutes Date of Service: Nov 01, 2024 Billing Provider: MADHAV STATON MD Problem Qualifiers (1) CHF (congestive heart failure): Heart failure type: unspecified Heart failure chronicity: unspecified Qualified Codes: I50.9 - Heart failure, unspecified CHAS WARNER, RES Nov 01, 2024 19:42
== END 2024-11-01 16:10 | DRG 149 ==
LOC: ER 10:35 → ED HOLD 12:33 → PCU 3S 14:43
PROVIDERS: ADMIT Family Medicine; ATTEND Family Medicine
DX: H81.13 Benign paroxysmal vertigo, bilateral (principal); N17.0 Acute kidney failure with tubular necrosis; I13.0 Hypertensive heart and chronic kidney disease with heart failure and stage 1 through stage 4 chronic kidney disease, or unspecified chronic kidney disease; I42.0 Dilated cardiomyopathy; I50.22 Chronic systolic (congestive) heart failure; E78.5 Hyperlipidemia, unspecified; F03.A0 Unspecified dementia, mild, without behavioral disturbance, psychotic disturbance, mood disturbance, and anxiety; I25.10 Atherosclerotic heart disease of native coronary artery without angina pectoris; R73.9 Hyperglycemia, unspecified; R73.03 Prediabetes; I49.5 Sick sinus syndrome; I48.0 Paroxysmal atrial fibrillation; N18.9 Chronic kidney disease, unspecified; N40.0 Benign prostatic hyperplasia without lower urinary tract symptoms; I25.2 Old myocardial infarction; Z63.4 Disappearance and death of family member; Z79.01 Long term (current) use of anticoagulants; Z85.46 Personal history of malignant neoplasm of prostate; Z86.16 Personal history of COVID-19; Z86.73 Personal history of transient ischemic attack (TIA), and cerebral infarction without residual deficits; Z87.891 Personal history of nicotine dependence; Z95.0 Presence of cardiac pacemaker; Z97.4 Presence of external hearing-aid
CPT/HCPCS: 36415; 70450; 70544; 70551; 71045; 80053; 80061; 80305; 80320; 81003; 82570; 83036; 83735; 83880; 83930; 83935; 84156; 84300; 84443; 84484; 84540; 85025; 87081; 87207; 93005; 93306; 97116; 97161; 97530; 99285; A6258; A6590; G0378; J7030